=== PATIENT | male | born 1990 | race Caucasian/White ===

== ENCOUNTER 2016-11-17 19:12 | Emergency (ER) | payer SELFPAY ==
[2016-11-17 19:28] VITALS: BP 129/84; PULSE 74; RESP 18; TEMP 97.9; O2SAT 99
[2016-11-17] MEDS ORDERED: Lidocaine 1% Inj (20ml) ONE (19:41)
--- NOTE | 2016-11-17 19:55 | ED PDOC ---
HPI: Wound Care - HPI Time Seen by Provider: 11/17/16 19:28 Chief Complaint (Nursing): Abnormal Skin Integrity Chief Complaint (Provider): Calf Laceration History Per: Patient History Of Present Illness: Umesh Glaser, a 26 year old male, presents to the ED with a laceration to his left calf. The patient states that he was using a box car checker to cut something and he slipped and cut his left calf. No active bleeding at this time. Patient unsure of tetanus status. Exam Limitations: no limitations Onset/Duration Of Symptoms: Hrs Current Symptoms Are (Timing): Still Present Past Medical History Reviewed: Historical Data, Nursing Documentation, Vital Signs Vital Signs: Last Vital Signs Temp 97.9 F 11/17/16 19:24 Pulse 74 11/17/16 19:24 Resp 18 11/17/16 19:24 BP 129/84 11/17/16 19:24 Pulse Ox 99 11/17/16 19:24 - Medical History PMH: No Chronic Diseases - Surgical History Surgical History: No Surg Hx - Family History Family History: States: Unknown Family Hx - Immunization History Hx Tetanus Toxoid Vaccination: No - Home Medications Home Medications: Ambulatory Orders Medication Instructions Recorded Bacitracin Ointment [Bacitracin] 1 applic TOP BID #1 tube 06/10/15 Cephalexin [Keflex] 500 mg PO BID #28 cap 06/10/15 Ibuprofen 600 mg PO Q6 PRN #15 tablet 06/10/15 - Allergies Allergies/Adverse Reactions: Allergies Allergy/AdvReac Type Severity Reaction Status Date / Time No Known Allergies Allergy Verified 06/09/15 23:22 Review of Systems Musculoskeletal: Positive for: Other (Laceration on left calf) Physical Exam - Reviewed Nursing Documentation Reviewed: Yes Vital Signs Reviewed: Yes - Physical Exam Appears: Positive for: Non-toxic, No Acute Distress Extremity: Positive for: Normal ROM, Other (2.5cm linear laceration on calf). Negative for: Tenderness, Deformity, Swelling Neurologic/Psych: Positive for: Alert, Oriented, Gait - ECG O2 Sat by Pulse Oximetry: 99 (RA) Pulse Ox Interpretation: Normal Procedure: Wound Repair - Time Performed Time Performed: 19:45 - Time Out Time Out: Side verified, Site verified, Patient ID confirmed, Sterile procedures obs. - Procedure Procedure: Wound Repair: laceration repair - Consent Obtained Consent obtained: Verbal - Performed by Performed by: Mid-level Provider (Velma Browne PA-C) - Indications Indication(s):: Laceration - Location Location:: Left, Leg (Calf) Dimensions Length cm: 2.5cm - Debris Debris:: None - Complexity Complexity:: Complex(3 or 2 w/debrid.) - Wound repair method Sutures:: # (4), Size (4-0), Type (Nylon) - Patient tolerated procedure Patient Tolerated Procedure:: Well Medical Decision Making Medical Decision Makin Initial Impression: 26 year old female presenting with a laceration to the left calf Initial Plan: * Laceration repair Laceration repair performed. Patient tolerated procedure well with no complications. See procedure note for details. Scribe Attestation Documented by Jeny Braden acting as a scribe for Velma Browne PA-C. Scribe Attestation All medical record entries made by the Scribe were at my direction and personally dictated by me. I have reviewed the chart and agree that the record accurately reflects my personal performance of the history, physical exam, medical decision making, and the department course for this patient. I have also personally directed, reviewed, and agree with the discharge instructions and disposition Disposition - Clinical Impression Clinical Impression: Laceration of calf - Patient ED Disposition Is Patient to be Admitted: No Counseled Patient/Family Regarding: Diagnosis, Need For Followup - Disposition Disposition: Routine/Home Disposition Time: 20:06 Condition: GOOD Additional Instructions: Do not get wet for 24-48 hours. Clean and antibiotic ointment twice a day. Suture removal in 8-10 days. Return sooner for signs of infection. Instructions: Laceration (ED), Care For Your Stitches (ED)
== END 2016-11-17 20:17 | disposition home or self-care (01) ==
LOC: H.ER 19:12
DX: S81.812A Laceration without foreign body, left lower leg, initial encounter (principal); W26.8XXA Contact with other sharp object(s), not elsewhere classified, initial encounter; Y92.89 Other specified places as the place of occurrence of the external cause

== ENCOUNTER 2016-12-15 20:01 | Emergency (ER) | payer SELFPAY ==
[2016-12-15 20:13] VITALS: BP 140/87; PULSE 80; RESP 16; TEMP 97.2; O2SAT 99
--- NOTE | 2016-12-15 20:33 | ED PDOC ---
HPI: General Adult Time Seen by Provider: 12/15/16 20:22 Chief Complaint (Nursing): ENT Problem Chief Complaint (Provider): Left Ear Pain History Per: Patient History/Exam Limitations: no limitations Onset/Duration Of Symptoms: Days (x3) Current Symptoms Are (Timing): Still Present Additional Complaint(s): Umesh Glaser is a 26 year old male that presents to the ED with a chief complaint of left ear pain that he has been experiencing for the past three days. Patient states that he has been using drops for his ears but that they have not relieved him of his pain. Past Medical History Reviewed: Historical Data, Nursing Documentation, Vital Signs Vital Signs: Last Vital Signs Temp 97.2 F L 12/15/16 20:10 Pulse 80 12/15/16 20:10 Resp 16 12/15/16 20:10 BP 140/87 12/15/16 20:10 Pulse Ox 99 12/15/16 20:48 - Family History Family History: States: Unknown Family Hx - Immunization History Hx Tetanus Toxoid Vaccination: No - Home Medications Home Medications: Ambulatory Orders Medication Instructions Recorded Bacitracin Ointment [Bacitracin] 1 applic TOP BID #1 tube 06/10/15 Cephalexin [Keflex] 500 mg PO BID #28 cap 06/10/15 Ibuprofen 600 mg PO Q6 PRN #15 tablet 06/10/15 Ciprofloxacin/Dexamethasone 4 drop .ROUTE BID #1 bottle 12/15/16 [Ciprodex 0.3%-0.1% 7.5 Ml] Guaifen/Phenyleph/Acetaminophn 1 tab PO BID #14 tab 12/15/16 [Mucinex Fast-Max Cold & Sinus 325 mg-200 mg-5] - Allergies Allergies/Adverse Reactions: Allergies Allergy/AdvReac Type Severity Reaction Status Date / Time No Known Allergies Allergy Verified 06/09/15 23:22 Review of Systems ENT: Positive for: Ear Pain (Left ear) Physical Exam - Reviewed Nursing Documentation Reviewed: Yes Vital Signs Reviewed: Yes - Physical Exam Appears: Positive for: Non-toxic, No Acute Distress Head Exam: Positive for: ATRAUMATIC, NORMOCEPHALIC Skin: Positive for: Normal Color, Warm Eye Exam: Positive for: Normal appearance, EOMI, PERRL ENT: Positive for: Other (Erythema of left external auditory canal. Pain with left tragal movement.). Negative for: Normal ENT Inspection - ECG O2 Sat by Pulse Oximetry: 99 (RA) Pulse Ox Interpretation: Normal Medical Decision Making Medical Decision Making: Impression: Otitis Externa Plan: * Patient will be given Rx for Ciprodex and Mucinex. Patient has no questions and offers no additional complaints, is stable for discharge home. Scribe Attestation: Documented by Esthela Mitchell, acting as a scribe for Velma Browne PA-C. Provider Scribe Attestation: All medical record entries made by the Scribe were at my direction and personally dictated by me. I have reviewed the chart and agree that the record accurately reflects my personal performance of the history, physical exam, medical decision making, and the department course for this patient. I have also personally directed, reviewed, and agree with the discharge instructions and disposition. Disposition - Clinical Impression Clinical Impression: Otitis externa - Patient ED Disposition Is Patient to be Admitted: No - Disposition Disposition: Routine/Home Disposition Time: 20:48 Condition: STABLE Prescriptions: Ciprofloxacin/Dexamethasone [Ciprodex 0.3%-0.1% 7.5 Ml] 4 drop .ROUTE BID #1 bottle Guaifen/Phenyleph/Acetaminophn [Mucinex Fast-Max Cold & Sinus 325 mg-200 mg-5] 1 tab PO BID #14 tab Instructions: Otitis Externa (ED) Forms: [employer] (Georgian)
== END 2016-12-15 21:02 | disposition home or self-care (01) ==
LOC: H.ER 20:01
DX: H60.92 Unspecified otitis externa, left ear (principal)

== ENCOUNTER 2018-05-16 10:16 | Emergency (ER) | payer OTHER ==
[2018-05-16 10:23] VITALS: BMI 28.5
[2018-05-16] MEDS ORDERED: Lidocaine 5% Patch TD STA (11:04)
[2018-05-16] MEDS ORDERED: Lidocaine 5% Patch TD ONE (11:10)
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
[2018-05-16 13:43] VITALS: BP 117/69; PULSE 68; RESP 15; TEMP 98.3
[2018-05-16 13:44] VITALS: O2SAT 98
== END 2018-05-16 13:29 | disposition home or self-care (01) ==
LOC: H.ER 10:16
DX: R51 Headache (principal); M54.2 Cervicalgia; V43.52XA Car driver injured in collision with other type car in traffic accident, initial encounter; W22.10XA Striking against or struck by unspecified automobile airbag, initial encounter; Y92.410 Unspecified street and highway as the place of occurrence of the external cause

== ENCOUNTER 2018-05-20 10:09 | Emergency (ER) | payer OTHER ==
[2018-05-20 10:31] VITALS: RESP 18
[2018-05-20 10:32] VITALS: BMI 28.2
--- NOTE | 2018-05-20 10:42 | ED PDOC ---
HPI: Influenza Time Seen by Provider: 05/20/18 10:28 Chief Complaint: Fever History Per: Patient Onset/Duration Of Symptoms: Days (2) Sick Contacts (Context): None Additional complaint(s):: Fever, chills, body aches, sore throat x 2 days. Denies cough. No vomiting. No urinary sxs. Past Medical History Vital Signs: Last Vital Signs Temp 101.6 F H 05/20/18 10:30 Pulse 119 H 05/20/18 10:30 Resp 18 05/20/18 10:30 BP 112/76 05/20/18 10:30 Pulse Ox 98 05/20/18 10:30 - Medical History PMH: No Chronic Diseases Denies: Chronic Kidney Disease - Family History Family History: States: Unknown Family Hx - Immunization History Hx Tetanus Toxoid Vaccination: No - Home Medications Home Medications: Ambulatory Orders Medication Instructions Recorded Bacitracin Ointment [Bacitracin] 1 applic TOP BID #1 tube 06/10/15 Cephalexin [Keflex] 500 mg PO BID #28 cap 06/10/15 Ibuprofen 600 mg PO Q6 PRN #15 tablet 06/10/15 Ciprofloxacin/Dexamethasone 4 drop .ROUTE BID #1 bottle 12/15/16 [Ciprodex 0.3%-0.1% 7.5 Ml] Guaifen/Phenyleph/Acetaminophn 1 tab PO BID #14 tab 12/15/16 [Mucinex Fast-Max Cold & Sinus 325 mg-200 mg-5] Cyclobenzaprine [Cyclobenzaprine 10 mg PO Q8 PRN #10 tab 05/16/18 HCl] Naproxen [Naprosyn] 500 mg PO BID PRN #10 tab 05/16/18 Amoxicillin [Amoxil 500 mg Cap] 500 mg PO TID #30 cap 05/20/18 - Allergies Allergies/Adverse Reactions: Allergies Allergy/AdvReac Type Severity Reaction Status Date / Time No Known Allergies Allergy Verified 05/16/18 10:59 Review of Systems ROS Statement: Except As Marked, All Systems Reviewed And Found Negative Constitutional: Positive for: Fever, Chills ENT: Positive for: Throat Pain Respiratory: Negative for: Cough Gastrointestinal: Negative for: Vomiting, Diarrhea Genitourinary Male: Negative for: Dysuria, Frequency Physical Exam - Reviewed Nursing Documentation Reviewed: Yes Vital Signs Reviewed: Yes - Physical Exam Appears: Positive for: Non-toxic, No Acute Distress Head Exam: Positive for: ATRAUMATIC, NORMAL INSPECTION, NORMOCEPHALIC Skin: Positive for: Normal Color, Warm, DRY Eye Exam: Positive for: EOMI, Normal appearance, PERRL ENT: Positive for: Pharyngeal Erythema. Negative for: Tonsillar Exudate Neck: Positive for: Normal, Painless ROM Cardiovascular/Chest: Positive for: Regular Rate, Rhythm Respiratory: Positive for: CNT, Normal Breath Sounds Gastrointestinal/Abdominal: Positive for: Normal Exam, Soft Back: Positive for: Normal Inspection Extremity: Positive for: Normal ROM Neurologic/Psych: Positive for: Alert, Oriented - ECG O2 Sat by Pulse Oximetry: 98 Disposition - Clinical Impression Clinical Impression: Strep throat - Patient ED Disposition Is Patient to be Admitted: No Counseled Patient/Family Regarding: Studies Performed, Diagnosis, Need For Followup, Rx Given - Disposition Referrals: [facility] [Outside] Disposition: Routine/Home Disposition Time: 11:55 Condition: FAIR Prescriptions: Amoxicillin [Amoxil 500 mg Cap] 500 mg PO TID #30 cap Instructions: Sore Throat in Adults Forms: [facility] (Swazi)
[2018-05-20 12:06] VITALS: TEMP 99.3
[2018-05-20 12:08] VITALS: BP 127/87; PULSE 98; O2SAT 100
== END 2018-05-20 12:06 | disposition home or self-care (01) ==
LOC: H.ER 10:09
DX: J02.0 Streptococcal pharyngitis (principal)